=== PATIENT | female | born 1950 | race Caucasian/White ===

== ENCOUNTER → 2016-05-05 | Outpatient (CLI) | payer BC ==
[~2016-05-05] MED LIST: /AMLO25TA; /ESOM40CA; ACET65TA; AMLO2.5T PO; BENA25CA4 PO; BISO5TAB5 PO; CELE20TA PO; CIPR25SS; COLA100C2; EXCETAB81 PO; FLON1SPR; GABA300C3 PO; LIDO5DIS36 TOP; LODI400T PO; NEXI40CA PO; OXYC1TAB23 PO; PAME50CA; PERC5TAB8; PERC7.5T8; RANI1TAB6 PO; SALI1GEL OU; ZEBE5TAB
== END ==
LOC: M ADMPAT 10:36
PROVIDERS: ATTEND Orthopaedic Surgery
DX: Z01.818 Encounter for other preprocedural examination (principal); M17.12 Unilateral primary osteoarthritis, left knee

== ENCOUNTER 2016-05-19 08:33 | Inpatient (IN) | payer BC ==
--- NOTE | 2016-05-15 19:29 | HPE ---
DATE OF ADMISSION: 05/19/2016 CHIEF COMPLAINT: Left knee pain and stiffness. HISTORY: Lorna is a 65-year-old female with progressively worsening left knee pain and stiffness. She has failed to improve with conservative management. She has elected for surgery for her continued symptoms with weightbearing activities and activities of daily living. She has consented for a left total knee arthroplasty by Dr. Oliver. Medical optimization completed by Dr. Knott and was reviewed during appointment today. CURRENT MEDICATIONS: - Celexa 20 mg daily - Zantac 150 mg daily - Carafate 1 gram up to four times a day as needed - Flonase 50 mcg/ACT 2 spray in each nostril daily - bisoprolol 1/4 of a 5 mg tablet daily - amlodipine 2.5 mg daily - gabapentin 300 mg three times a day - Nexium 40 mg daily - Percocet 5/325 1-2 tablets three times daily - Lidoderm patches as needed - calcium with vitamin D - Excedrin extra strength ALLERGIES: MORPHINE, PENICILLIN, AMPICILLIN, LEVAQUIN, CELEBREX, and LATEX. MEDICAL HISTORY: Fibromyalgia. SURGICAL HISTORY: L5 laminectomy, C6 fusion, sections, tubal ligation, tonsillectomy, and appendectomy. SOCIAL HISTORY: Patient quit smoking in 2004. She does not use alcohol. REVIEW OF SYSTEMS: Patient denies fevers, chills, nausea, vomiting, or diarrhea. She denies any chest pain, shortness of breath, or cough. She denies any recent upper respiratory infection or urinary tract infection symptoms. She does have persistent left knee pain with weightbearing activities. PHYSICAL EXAM: Well nourished, well developed female in no apparent distress. She is walking with a slight limping gait favoring the left side. Inspection of the left knee reveal no gross abnormalities. The skin is intact. There is quite a bit of tenderness to palpation medially. No hip irritability elicited with range of motion. Patient's calf is soft and nontender to palpation with no palpable cords noted. Her pedal pulses are palpable. Her cap refill is brisk. Neck is supple without adenopathy or jugular venous distension (JVD). Lungs clear to auscultation bilaterally. Heart regular rate and rhythm. Abdomen, bowel sounds are present. Vital signs: Height: 5'3". Weight: 18.4 lbs. Temperature 98.4. Blood pressure: 122/80. Pulse 60. Respirations: 14. LABORATORY DATA: Chest x-ray: No acute findings in chest. 0.7 cm right upper lobe nodule which is being followed by pulmonology. EKG: Sinus bradycardia with nonspecific intraventricular conduction delay. Nasal swabs were notable for staphylococcus aureus which was treated per protocol. Complete blood count WBC 5.1, RBC 4.20, hemoglobin 12.5, hematocrit 38.3, platelets 212, prothrombin time 10, INR 1.02, ESR 4. Complete metabolic profile fasting glucose elevated at 107, BUN 14, creatinine 0.9, sodium 140, potassium 3.9, chloride 1.03, carbon dioxide 25, calcium 9.1, GAP 12, GFR 63, AST decreased at 13, ALT 18, alkaline phosphatase 90, total bilirubin 0.6, total protein 6.6, albumin 3.7. Urine analysis ws negative with urine culture showing no growth. DIAGNOSES: 1. Symptomatic osteoarthritis of the right knee with x-rays notable for endstage degenerative changes. 2. Positive nasal swabs for staphylococcus aureus. PLAN: 1. Patient has consented for a left total knee arthroplasty by Dr. Oliver. 2. Patient to be treated with Bactrim DS, mupirocin ointment, and Hibiclens per protocol. My preceptor for this patient encounter was Dr. Santhosh Oliver . The preceptor was physically present in the building during the encounter and was fully available. As needed, all aspects of the patient interview, examination, medical decision making process, and medical care plan development were reviewed and approved by the preceptor. The preceptor is aware and concurs with the plan as stated in the body of this note and will attest to such by his/her cosignature.
[~2016-05-19] VITALS: Ht 162.6 cm; Wt 86.2 kg
[2016-05-19] MEDS: FLUTICASONE PROP 0.05% NASAL SPRAY 16 GM (FLONASE) SCH (09:00)
[2016-05-19] MEDS ORDERED: VANCOMYCIN HCL 1,000 MG, VIAL MATE ADAPTER 1 EACH in D5W 250 ML IV ONE ×2 (09:00→21:00)
[2016-05-19] MEDS ORDERED: LR 1,000 ML IV SCH ×4 (09:00→12:45)
[2016-05-19] MEDS ORDERED: MIDAZOLAM INJ 2 MG/2 ML VIAL (J2250) As Ordered ONE ×2 (09:55→10:54)
[2016-05-19] MEDS ORDERED: fentaNYL 100 MCG/2 ML INJECTION (J3010) As Ordered ONE ×3 (09:55→10:54)
[2016-05-19] MEDS ORDERED: TRANEXAMIC ACID 100 MG/ML 10ML VIAL As Ordered ONE (10:17)
[2016-05-19] MEDS ORDERED: BUPIVACAINE HCL 0.25% 30 ML VIAL As Ordered ONE (10:17)
[2016-05-19] MEDS ORDERED: CLINDAMYCIN INJ 900MG/6ML VIAL As Ordered ONE (10:18)
[2016-05-19] MEDS ORDERED: EPINEPHrine INJ 1 MG/ML 1ML VIAL/AMP As Ordered ONE (10:19)
[2016-05-19] MEDS ORDERED: fentaNYL 100 MCG/2 ML INJECTION (J3010) IV ONE (10:30)
[2016-05-19] MEDS ORDERED: MIDAZOLAM INJ 2 MG/2 ML VIAL (J2250) IV ONE (10:30)
[2016-05-19] MEDS ORDERED: PROPOFOL 500 MG/50 ML VIAL As Ordered ONE (10:54)
[2016-05-19] MEDS ORDERED: ePHEDrine SULFATE 25 MG/5 ML(5MG/ML) SYRINGE As Ordered ONE (10:54)
[2016-05-19] MEDS ORDERED: PHENYLephrine HCL 500 MCG/5 ML (100MCG/ML) SYRINGE (J2370) As Ordered ONE ×2 (10:54→11:41)
[2016-05-19] MEDS ORDERED: PROPOFOL 200 MG/20 ML VIAL As Ordered ONE (11:39)
[2016-05-19] MEDS ORDERED: ONDANSETRON 4MG/2ML VIAL (J2405) As Ordered ONE (11:43)
[2016-05-19] MEDS ORDERED: LIDOCAINE 2% INJ 100 MG/5 ML SDV (FOR ANES.) As Ordered ONE (11:43)
[2016-05-19] MEDS ORDERED: fentaNYL 100 MCG/2 ML INJECTION (J3010) IV PRN (12:45)
[2016-05-19] MEDS ORDERED: ONDANSETRON 4MG/2ML VIAL (J2405) IV PRN (12:45)
[2016-05-19] MEDS ORDERED: HYDROmorphone HCL 1 MG/ML SYRINGE (J1170) IV PRN (12:45)
[2016-05-19] MEDS ORDERED: PATIENT IS CURRENTLY ON AN ON-Q PAIN BUSTER PAIN RELIEF SYSTEM XX SCH (13:00)
[2016-05-19] MEDS ORDERED: ACETAMINOPHEN TAB 650MG DOSE (2X325MG) PO PRN (13:00)
[2016-05-19] MEDS ORDERED: FLEET ENEMA PR PRN (13:00)
[2016-05-19] MEDS: PERCOCET 5MG/325MG TAB PO PRN ×4 (13:10→21:31)
[2016-05-19] MEDS: HYDROmorphone HCL 1 MG/ML SYRINGE (J1170) IV PRN ×8 (13:10→23:16)
[2016-05-19] MEDS ORDERED: EPINEPHrine INJ 1 MG/ML 1ML VIAL/AMP ONE (14:48)
[2016-05-19] MEDS ORDERED: ROPIvacaine 0.5% 30 ML INJECTION (J2795) ONE (14:48)
[2016-05-19] MEDS ORDERED: dexameTHASONE 10 MG/1 ML VIAL PRES.FREE (J1100) ONE (14:48)
[2016-05-19 15:00] VITALS: BP 120/61
[2016-05-19 15:03] LABS: INR 1.02
[2016-05-19 15:30] VITALS: BP 121/59
--- NOTE | 2016-05-19 15:46 | IPNPDOC ---
Subjective Date Seen The patient was seen on 05/19/16. Subjective Chief Complaint/HPI The patient is a 65-year-old female admitted with a reason for visit of Arthritis Left Knee. Events since last encounter Patient states she is overall doing well s/p L TKA today; she states it "aches like a toothache" but that her nurse is working on getting the right dose of pain medications. Constitutional: Denies: Chills, Fever Eyes: Denies: Pain ENT: Denies: Head Aches Skin: Denies: Rash Pulmonary: Denies: Cough, Dyspnea Cardiovascular: Denies: Chest Pain, Lt Headedness, Orthopnea, Palpitations Gastrointestinal: Denies: Abdominal Pain, Nausea, Vomiting Genitourinary: Denies: Dysuria Musculoskeletal: Reports: Back Pain (chronic), Joint Pain (Left knee) Neurological: Denies: Confusion, Numbness, Weakness Psych: Reports: Mood Normal, Denies: Anxiety Objective Physical Examination General Exam: Positive: Alert, Cooperative, No Acute Distress Eye Exam: Positive: EOMI, PERRLA ENT Exam: Positive: Atraumatic, Mucous membr. moist/pink Neck Exam: Positive: Supple Chest Exam: Positive: Clear to auscultation, Normal air movement Heart Exam: Positive: Normal S1, Normal S2, Rate Normal, Negative: Murmurs, Rubs Abdomen Exam: Positive: Normal bowel sounds, Soft, Negative: Hepatospenomegaly, Tenderness Extremity Exam: Negative: Cyanosis, Edema Skin Exam: Positive: Nl turgor and temperature, Negative: Rash Neuro Exam: Positive: Cranial Nerves 3-12 NL, Normal Speech Psych Exam: Positive: Mental status NL, Mood NL, Oriented x 3 Assessment /Plan Assessment Please see pre-operative consultation note by Dr. Knott on the patient's chart for full history. Problems (1) Arthritis of left knee Status: Acute Problem Text: S/p L total knee replacement by Dr. Oliver on 05/19/2016. Patient is doing well. Will defer to Ortho in terms of pain management and anticoagulation. (2) Hypertension Status: Chronic Problem Text: BP is low-normal today, so will hold home bisoprolol 1.25 mg (1/ 4 of a 5 mg tablet) daily and amlodipine 2.5 mg daily for now. (3) Lumbosacral stenosis with neurogenic claudication Status: Chronic Problem Text: Continue home gabapentin. Other pain medications per Ortho. Holding home etolodac and excedrin while on warfarin. (4) Anxiety Status: Chronic Problem Text: Continue home citalopram. (5) Obstructive sleep apnea Status: Chronic Problem Text: Continue home CPAP. (6) GERD (gastroesophageal reflux disease) Status: Chronic Problem Text: Continue home PPI; hold home PRN carafate and PRN zantac. Plan/VTE VTE Prophylaxis Ordered?: Yes VS, I&O, 24H, Fishbone Vital Signs/I&O Vital Signs Date Time Temp Pulse Resp B/P Pulse Ox O2 Delivery O2 Flow Rate FiO2 05/19/16 13:40 98.6 71 16 108/54 98 Nasal Cannula 3 Laboratory Data 24H LABS Laboratory Tests 2 05/19/16 14:15: Prothromb Time International Ratio 1.02, Prothrombin Time 13.5 CELI VALDEZ MD May 19, 2016 15:46
[2016-05-19 16:30] VITALS: BP 130/66
[2016-05-19] MEDS ORDERED: WARFARIN SOD 5 MG TAB PO ONE (17:00)
[2016-05-19] MEDS: GABAPENTIN 300 MG CAP PO SCH ×2 (17:02→20:08)
[2016-05-19 17:30] VITALS: BP 108/54
[2016-05-19 18:30] VITALS: BP 120/57
[2016-05-19 19:30] VITALS: BP 142/60
[2016-05-19] MEDS: CitaloPRAM (CeleXA) 20 MG TAB PO SCH (20:08)
[2016-05-19] MEDS: LIDOCAINE 5% (LIDODERM) PATCH TD SCH (21:29)
[2016-05-20] VITALS: BP 120/61
[2016-05-20] MEDS: PERCOCET 5MG/325MG TAB PO PRN ×5 (01:47→20:16)
[2016-05-20 06:00] VITALS: BP 103/52
[2016-05-20 06:42] LABS: MEAN CORPUSCULAR HEMOGLOBIN 30.4 pg (27.0-33.0); MEAN CORPUSCULAR HGB CONC 32.6 g/dl (32.0-36.5); MEAN CORPUSCULAR VOLUME 93.2 fl (80.0-96.0); RED CELL DISTRIBUTION WIDTH 13.1 % (11.5-14.5)
[2016-05-20 06:46] LABS: INR 1.42
[2016-05-20 08:00] VITALS: BP 123/61
[2016-05-20] MEDS ORDERED: oxyCODONE 10 MG CR TAB PO SCH (09:00)
[2016-05-20] MEDS: **NOTE PATIENT COMMENT** MISC XX SCH (09:00)
[2016-05-20] MEDS: GABAPENTIN 300 MG CAP PO SCH ×3 (09:09→20:16)
[2016-05-20] MEDS: SENOKOT S TAB PO SCH ×2 (09:09→20:16)
[2016-05-20] MEDS: FLUTICASONE PROP 0.05% NASAL SPRAY 16 GM (FLONASE) SCH (09:09)
[2016-05-20] MEDS: MOM 30ML SUSPENSION UDC PO SCH (09:09)
[2016-05-20] MEDS: MIRALAX *UNIT DOSE* 17GM PACKET PO SCH (09:09)
[2016-05-20] MEDS: HYDROmorphone HCL 1 MG/ML SYRINGE (J1170) IV PRN ×2 (09:12→13:31)
--- NOTE | 2016-05-20 10:33 | RO ---
DATE OF PROCEDURE: 05/19/2016 PREOPERATIVE DIAGNOSIS: Left knee osteoarthritis. POSTOPERATIVE DIAGNOSIS: Left knee osteoarthritis. PROCEDURE: Left total knee arthroplasty using PFC rotating platform, posterior stabilized size 3 femur, 2.5 tibial tray, 12.5 polyethylene, 32 patellar button. SURGEON: Dr. Santhosh Oliver. DIRECTOR OF RECRUITMENT AND ADMISSIONS: Jermaine Carney. ANESTHESIA: Spinal block. ESTIMATED BLOOD LOSS: Less than 50. COMPLICATIONS: None. INDICATIONS: 65-year woman who has had gradually worsening left knee pain refractory to conservative management. She wished to go ahead with surgical treatment having understood the nature of the procedure, the risks of bleeding, infection, damage to nerves, vessels, persistent pain, wear, loosening, blood clots, medical problems, , among others. Some risk of stiffness. Preop clearance was obtained. PROCEDURE: The patient taken to the operating room and placed in supine position after spinal anesthesia was induced. Left lower extremity was prepped and draped in usual sterile fashion. Time-out was performed. Tourniquet was inflated. I then created a longitudinal incision over the anterior aspect of the knee. Sharp dissection was carried down through subcutaneous tissue. I performed a medial parapatellar arthrotomy per routine, everted the patella, flexed the knee up. I removed some of the fat pad for visualization then used the canal initiating reamer followed by the intramedullary guide set at 5 of valgus and 10 mm cut. This was pinned in place by the environmental assistant. The environmental assistant made the distal femoral cut as I protected soft tissues and supervised the cut. The sizing guide was then used and it was sized to be a 3 femur. The pin holes were placed in the end of the femur with external rotation and the cutting block was secured and remaining four cuts were made. At all times the soft tissues were protected. We then prepared the tibial side and the alignment guide was then placed in the appropriate amount posterior slope and valgus and the tibial cut was made about 4 mm off the low side and I removed this tibial bone. It was a little bit thicker I think due to the relative wear on the medial side but overall excellent cut was noted. We then used the chronic specialist to remove soft tissue from either side of the knee and osteophytes posteriorly. The spacer blocks were then used and a size 12.5 seemed to be the most appropriate in flexion and extension. Tibial tray was prepared and the 2.5 fit nicely. It was pinned in place, drilled, broached and the PCL was examined and it did appear to be that it was relatively deficient. I was a little concerned about going with the cruciate retaining knee just because I think that a majority of the PCL was not functional. So we decided to go ahead with the box cutting guide on the end of the femur. This was pinned in place, size 3. I made the sagittal cuts and the environmental assistant made the distal cut. We filed this down and made sure that there was no high spots. Trial components were then placed and excellent fit and alignment and stability were noted. She had full extension, excellent flexion with no posterior impingement. There was excellent alignment of the components. I then freehand cut the patella which was notably arthritic. It was severe arthritis. I removed about 7 mm of bone and sized to be a 32. The drill holes were placed and the trial button was placed which tracked very nicely. Once I was satisfied with this and I had removed all the soft tissue that would have possibly impinged, I removed the trial components, irrigated copiously. The environmental assistant prepared the bone cement in a modern technique on the back table and then I dried the bony surfaces, cemented on the tibial tray, removed excess bone cement, cemented on the femoral component in the usual fashion, removed excess bone cement and then placed the tibial tray size 12, posterior stabilized rotating platform and reduced the knee. At this point, we cemented on the patellar component held in place with a clamp. We had copiously irrigated and dried the bony surfaces prior to cementing and we copiously irrigated at this point. I then repaired the deep layer with several interrupted #1 Vicryl sutures and removed the patellar clamp once the cement had hardened. We then used a single arm Stratafix suture starting around the midpoint and the environmental assistant working proximally and I worked distally obtaining a watertight closure of the deep layer. These were locked appropriately at either end. I then put the knee through range of motion. Excellent stability and range of motion were noted and there was no catching or clicking noted. The wound was irrigated, closed subcutaneous with #2-0 Vicryl with the environmental assistant's help, skin with giovana. Sterile dressing was applied. I did insert a PainBuster through the superolateral aspect of the knee and injected 10 mL of the Marcaine with fentanyl. The PainBuster catheter was hooked up and attached to the skin in the usual fashion. Tourniquet had been deflated and dressing applied. She was taken to recovery room in stable condition. No known complications. The plan be routine postop. The environmental assistant was instrumental in holding retractors and making the distal femoral cuts and preparing the bone cement and assisting in closure.
--- NOTE | 2016-05-20 10:46 | REP ---
LEFT KNEE: Two views of the left knee are performed. There is a total knee prosthesis in good position. Structures are well aligned. Osseous structures are intact. Metallic skin giovana are seen anteriorly. Signed by Yonatan Lay MD 05/20/2016 08:07 P
[2016-05-20 14:00] VITALS: BP 127/61
[2016-05-20] MEDS ORDERED: WARFARIN SOD 5 MG TAB PO SCH (17:00)
[2016-05-20] MEDS: oxyCODONE 10 MG CR TAB PO SCH (17:43)
[2016-05-20] MEDS: ONDANSETRON 4MG/2ML VIAL (J2405) IV PRN (17:53)
[2016-05-20] MEDS: CitaloPRAM (CeleXA) 20 MG TAB PO SCH (20:16)
[2016-05-20] MEDS: LIDOCAINE 5% (LIDODERM) PATCH TD SCH (20:18)
[2016-05-20 22:00] VITALS: BP 132/62
[2016-05-20] MEDS: HYDROmorphone 2 MG TAB PO PRN (22:29)
[2016-05-21] MEDS: PERCOCET 5MG/325MG TAB PO PRN ×4 (01:41→20:29)
[2016-05-21] MEDS: oxyCODONE 10 MG CR TAB PO SCH (05:54)
[2016-05-21 06:00] VITALS: BP 160/81
[2016-05-21] MEDS: ONDANSETRON 4MG/2ML VIAL (J2405) IV PRN (06:32)
[2016-05-21] MEDS: HYDROmorphone 2 MG TAB PO PRN (06:32)
[2016-05-21 06:45] LABS: INR 2.33
[2016-05-21 06:46] LABS: MEAN CORPUSCULAR HEMOGLOBIN 30.7 pg (27.0-33.0); MEAN CORPUSCULAR HGB CONC 32.6 g/dl (32.0-36.5); MEAN CORPUSCULAR VOLUME 94.1 fl (80.0-96.0); WHITE BLOOD COUNT 7.1 K/mm3 (4.0-10.0)
[2016-05-21] MEDS: MIRALAX *UNIT DOSE* 17GM PACKET PO SCH (08:36)
[2016-05-21] MEDS: PANTOPRAZOLE 40MG TAB (PROTONIX) PO SCH (08:36)
[2016-05-21] MEDS: FLUTICASONE PROP 0.05% NASAL SPRAY 16 GM (FLONASE) SCH (08:36)
[2016-05-21] MEDS: MOM 30ML SUSPENSION UDC PO SCH (08:36)
[2016-05-21] MEDS: SENOKOT S TAB PO SCH ×2 (08:36→20:27)
[2016-05-21] MEDS: GABAPENTIN 300 MG CAP PO SCH ×3 (08:36→20:26)
[2016-05-21] MEDS: **NOTE PATIENT COMMENT** MISC XX SCH (09:00)
[2016-05-21] MEDS ORDERED: MORPHINE 15 MG SA TAB PO SCH (09:00)
--- NOTE | 2016-05-21 12:38 | IPNPDOC ---
Subjective Date Seen The patient was seen on 05/21/16. Subjective Chief Complaint/HPI The patient is a 65-year-old female admitted with a reason for visit of Arthritis Left Knee. Constitutional: Denies: Chills, Fever ENT: Denies: Head Aches Skin: Denies: Rash Pulmonary: Reports: Dyspnea (a little SOB last night), Denies: Cough Cardiovascular: Denies: Chest Pain, Palpitations Gastrointestinal: Denies: Abdominal Pain, Nausea, Vomiting Genitourinary: Denies: Dysuria Musculoskeletal: Reports: Back Pain (chronic) Neurological: Denies: Confusion Psych: Reports: Mood Normal Objective Physical Examination General Exam: Positive: Alert, Cooperative, No Acute Distress ENT Exam: Positive: Atraumatic, Mucous membr. moist/pink Neck Exam: Positive: Supple Chest Exam: Positive: Diminished (in bilateral bases) Heart Exam: Positive: Normal S1, Normal S2, Rate Normal, Negative: Murmurs, Rubs Abdomen Exam: Positive: Normal bowel sounds, Soft, Negative: Hepatospenomegaly, Tenderness Extremity Exam: Negative: Cyanosis, Edema Skin Exam: Positive: Nl turgor and temperature, Negative: Rash Neuro Exam: Positive: Cranial Nerves 3-12 NL, Normal Speech Psych Exam: Positive: Mental status NL, Mood NL, Oriented x 3 Assessment /Plan Problems (1) Arthritis of left knee Status: Acute Problem Text: S/p L total knee replacement by Dr. Oliver on 05/19/2016. Patient is doing well. Will defer to Ortho in terms of pain management and anticoagulation. (2) Hypertension Status: Chronic Problem Text: BP elevated today with SBP of 160; restart home bisoprolol 1.25 mg (1/4 of a 5 mg tablet) daily and amlodipine 2.5 mg daily. (3) Shortness of breath Status: Acute Problem Text: Temp of 100.2 this morning and requiring O2; will check CXR. Continue incentive spirometry. (4) Lumbosacral stenosis with neurogenic claudication Status: Chronic Problem Text: Continue home gabapentin. Other pain medications per Ortho. Holding home etolodac and excedrin while on warfarin. (5) Anxiety Status: Chronic Problem Text: Continue home citalopram. (6) Obstructive sleep apnea Status: Chronic Problem Text: Continue home CPAP. (7) GERD (gastroesophageal reflux disease) Status: Chronic Problem Text: Continue home PPI; hold home PRN carafate and PRN zantac. Plan/VTE VTE Prophylaxis Ordered?: Yes VS, I&O, 24H, Fishbone Vital Signs/I&O Vital Signs Date Time Temp Pulse Resp B/P Pulse Ox O2 Delivery O2 Flow Rate FiO2 05/21/16 10:39 16 05/21/16 09:05 Nasal Cannula 2.0 05/21/16 06:00 100.2 73 160/81 94 I&O- Last 24 Hours up to 6 AM 05/21/16 06:00 Intake Total 2280 ml Output Total 2050 ml Balance 230 ml Laboratory Data 24H LABS Laboratory Tests 2 05/21/16 06:16: Prothromb Time International Ratio 2.33, Prothrombin Time 25.6H CBC/BMP Laboratory Tests 05/21/16 06:16 Red Blood Count 2.78 L, Mean Corpuscular Volume 94.1, Mean Corpuscular Hemoglobin 30.7, Mean Corpuscular Hemoglobin Concent 32.6, Red Cell Distribution Width 13.0 CELI VALDEZ MD May 21, 2016 12:38
[2016-05-21 14:00] VITALS: BP 135/67
--- NOTE | 2016-05-21 15:27 | REP ---
TWO VIEW CHEST: Two views of the chest are performed. There are no prior studies for comparison. There appears to be mild bibasilar fibrotic change. 7 mm nodular opacity is seen in the right upper lung zone. No consolidating infiltrate is seen. The heart is normal in size and the mediastinal silhouette is unremarkable. There are mild degenerative changes of the spine. IMPRESSION: No evidence of acute infiltrate. Mild bibasilar fibroatelectatic change. There appears to be a 7 mm nodular density in the right upper lobe. Recommend CT of the chest to further evaluate. Signed by Yonatan Lay MD 05/22/2016 04:38 P
[2016-05-21] MEDS: CitaloPRAM (CeleXA) 20 MG TAB PO SCH (20:27)
[2016-05-21] MEDS: LIDOCAINE 5% (LIDODERM) PATCH TD SCH (20:29)
[2016-05-21] MEDS ORDERED: BISOPROLOL FUMARATE 1.25MG PER 1/4 TABLET PO SCH (21:00)
[2016-05-21 22:00] VITALS: BP 131/62
[2016-05-22] MEDS: PERCOCET 5MG/325MG TAB PO PRN ×3 (00:55→10:08)
[2016-05-22 06:00] VITALS: BP 128/58
[2016-05-22 06:53] LABS: INR 1.71
[2016-05-22] MEDS ORDERED: OXYC-299 PO (08:09)
[2016-05-22] MEDS ORDERED: COUM2.5T11 PO (08:09)
[2016-05-22] MEDS ORDERED: PERC5TAB6 PO (08:09)
[2016-05-22 09:00] VITALS: BP 122/58
[2016-05-22] MEDS: **NOTE PATIENT COMMENT** MISC XX SCH (09:00)
[2016-05-22] MEDS: MIRALAX *UNIT DOSE* 17GM PACKET PO SCH (09:00)
[2016-05-22] MEDS: MOM 30ML SUSPENSION UDC PO SCH (09:00)
[2016-05-22] MEDS: GABAPENTIN 300 MG CAP PO SCH (09:13)
[2016-05-22 09:14] VITALS: BP 122/58
[2016-05-22] MEDS: PANTOPRAZOLE 40MG TAB (PROTONIX) PO SCH (09:14)
[2016-05-22] MEDS: SENOKOT S TAB PO SCH (09:14)
[2016-05-22] MEDS: FLUTICASONE PROP 0.05% NASAL SPRAY 16 GM (FLONASE) SCH (09:15)
== END 2016-05-22 10:45 | disposition home or self-care (01) | DRG 302 ==
LOC: M OR 08:33 → M MS5PR 14:05
PROVIDERS: ADMIT Orthopaedic Surgery; ATTEND Orthopaedic Surgery
PROC: 0SRD0J9 Replacement of Left Knee Joint with Synthetic Substitute, Cemented, Open Approach (ICD-10-PCS; principal; 2016-05-19 10:20)
DX: M17.12 Unilateral primary osteoarthritis, left knee (principal); I10 Essential (primary) hypertension; M79.7 Fibromyalgia; F41.9 Anxiety disorder, unspecified; G47.33 Obstructive sleep apnea (adult) (pediatric); K21.9 Gastro-esophageal reflux disease without esophagitis; M48.06 Spinal stenosis, lumbar region; Z88.0 Allergy status to penicillin; Z88.8 Allergy status to other drugs, medicaments and biological substances; Z88.6 Allergy status to analgesic agent; Z88.5 Allergy status to narcotic agent; Z87.891 Personal history of nicotine dependence

== ENCOUNTER → 2016-11-20 | Outpatient (REF) | payer BC ==
[~2016-11-20] MED LIST changes: +COUM2.5T17 PO; +GABA-282 PO; -GABA300C3 PO; -LIDO5DIS36 TOP; +LIDO5DIS41 TOP; +OXYC-141 PO; +PERC5TAB12 PO
== END ==
LOC: M SFHCCLAY 13:47
PROVIDERS: ATTEND Family Medicine
DX: I10 Essential (primary) hypertension (principal); M48.07 Spinal stenosis, lumbosacral region; Z96.652 Presence of left artificial knee joint; Z53.9 Procedure and treatment not carried out, unspecified reason

== ENCOUNTER → 2017-05-07 | Outpatient (REF) | payer BC, MEDICARE | LOC: M SFHCCLAY 14:32 | DX: R30.0 Dysuria (principal) ==

== ENCOUNTER → 2017-05-21 | Outpatient (REF) | payer BC, MEDICARE | LOC: M SMT 16:57 | DX: R31.29 Other microscopic hematuria (principal) | CPT/HCPCS: 87086 ==

== ENCOUNTER → 2017-09-22 | Outpatient (REF) | payer BC, MEDICARE ==
[2017-10-04 10:13] LABS: AMPHETAMINE SCREEN, URINE Negative ng/mL (Cutoff=1000); BARBITURATES SCREEN, URINE Negative ng/mL (Cutoff=200); BENZODIAZEPINES, URINE SCREEN Negative ng/mL (Cutoff=200); CANNABINOID SCREEN, URINE Negative ng/mL (Cutoff=20); COCAINE SCREEN, URINE Negative ng/mL (Cutoff=300); CREATININE, URINE 23.4 mg/dL (20.0-300.0); METHADONE, URINE SCREEN Negative ng/mL (Cutoff=300); OPIATE SCREEN, URINE See Final Results ng/mL (Cutoff=300); OPIATES, URINE Negative ng/mL (Cutoff=300); OXYCODONE URINE Positive (.); OXYCODONE, SCREEN, URINE See Final Results ng/mL (Cutoff=100); OXYCODONE, URINE CONFIRM 381 ng/mL (Cutoff=100); OXYCODONE/OXYMORPH, URINE Positive (Cutoff=100); OXYMORPHONE, URINE Positive (.); OXYMORPHONE, URINE CONFIRM 151 ng/mL (Cutoff=100); PCP SCREEN, URINE Negative ng/mL (Cutoff=25); pH, URINE 7.6 (4.5-8.9)
== END ==
LOC: M SFHCCLAY 14:22
DX: M54.5 Low back pain (principal)
CPT/HCPCS: G0463

== ENCOUNTER → 2020-09-13 | Outpatient (REF) | payer MEDICARE ==
[~2020-09-13] MED LIST changes: -/AMLO25TA; -/ESOM40CA; -AMLO2.5T PO; +AMLO2.5T3 PO; +BISO5TAB14 PO; -BISO5TAB5 PO; +NEXI1CAP3; +NORV2TAB; +RANI-397 PO; -RANI1TAB6 PO
[2020-09-13 16:19] LABS: HEMOGLOBIN 12.4 g/dl (12.0-15.5); MEAN CORPUSCULAR HEMOGLOBIN 29.2 pg (27.0-33.0); MEAN CORPUSCULAR HGB CONC 31.8 g/dl (32.0-36.5); PLATELET COUNT, AUTOMATED 196 10^3/uL (150-450); RED BLOOD COUNT 4.24 10^6/uL (4.00-5.40); WHITE BLOOD COUNT 5.7 10^3/uL (4.0-10.0)
[2020-09-13 16:52] LABS: ALBUMIN 3.9 GM/DL (3.2-5.2); ALT/SGPT 17 U/L (12-78); BILIRUBIN,TOTAL 0.4 MG/DL (0.2-1.0); BLOOD UREA NITROGEN 12 MG/DL (7-18); CALCIUM LEVEL 8.8 MG/DL (8.8-10.2); CARBON DIOXIDE LEVEL 29 MEQ/L (21-32); CHLORIDE LEVEL 106 MEQ/L (98-107); CHOLESTEROL LEVEL 200 MG/DL (<200); CHOLESTEROL RISK RATIO 3.448 (<5); FREE T4 0.84 NG/DL (0.76-1.46); GLOMERULAR FILTRATION RATE > 60.0 (>45); GLUCOSE, FASTING 86 MG/DL (70-100); HDL CHOLESTEROL 58 MG/DL (>40); LDL CHOLESTEROL 125 MG/DL (<100); NON-HDL-C 142 MG/DL; POTASSIUM SERUM 3.9 MEQ/L (3.5-5.1); SODIUM LEVEL 139 MEQ/L (136-145); TOTAL PROTEIN 6.6 GM/DL (6.4-8.2); TRIGLYCERIDES LEVEL 83 MG/DL (<150)
== END ==
LOC: M SFHCCLAY 10:34
PROVIDERS: ATTEND Family Medicine
DX: G47.33 Obstructive sleep apnea (adult) (pediatric) (principal); I10 Essential (primary) hypertension; M47.12 Other spondylosis with myelopathy, cervical region; E78.00 Pure hypercholesterolemia, unspecified
CPT/HCPCS: 80053; 80061; 84439; 84443; 85027; G0463

== ENCOUNTER → 2020-10-09 | Outpatient (REF) | payer MEDICARE | LOC: M LAB REF 08:53 | PROVIDERS: ATTEND Surgery | DX: L98.0 Pyogenic granuloma (principal) ==

== ENCOUNTER → 2020-10-29 | Outpatient (REF) | payer MEDICARE ==
[2020-10-29 17:16] LABS: BLOOD UREA NITROGEN 12 MG/DL (7-18); CREATININE FOR GFR 0.69 MG/DL (0.55-1.30); GLOMERULAR FILTRATION RATE > 60.0 (>45)
== END ==
LOC: M LABDRAWC 15:39
PROVIDERS: ATTEND Orthopaedic Surgery Orthopaedic Surgery of the Spine
DX: Z86.79 Personal history of other diseases of the circulatory system (principal)

== ENCOUNTER → 2021-03-18 | Outpatient (CLI) | payer MEDICARE ==
[~2021-03-18] MED LIST changes: +ATEN25TA PO; +CITRTAB19 PO; +CLIN1LOT TOP; +DULO1CAP6 PO; +EXCETAB33 PO; +FAMO20TA PO; +SENN-23 PO
== END ==
LOC: M LABSMTC 11:26
PROVIDERS: ATTEND Anesthesiology
DX: Z01.812 Encounter for preprocedural laboratory examination (principal); Z20.822 Contact with and (suspected) exposure to COVID-19

== ENCOUNTER 2021-03-22 09:24 | Day surgery (SDC) | payer MEDICARE ==
[~2021-03-22] VITALS: Ht 162.6 cm; Wt 91.6 kg
[~2021-03-22 09:24] MED LIST changes: +LIDOCAINE 2% 100MG/5ML SDV (FOR ANES.) As Ordered ONE; +NS 1,000 ML IV ONE; +propofoL 200 MG/20 ML VIAL As Ordered ONE
[2021-03-22 12:40] VITALS: BP 142/88
== END 2021-03-22 12:57 | disposition home or self-care (01) ==
LOC: M OPP 09:24
PROVIDERS: ATTEND Internal Medicine Gastroenterology
DX: Z12.11 Encounter for screening for malignant neoplasm of colon (principal); Z86.010 Personal history of colon polyps; D12.2 Benign neoplasm of ascending colon; K57.30 Diverticulosis of large intestine without perforation or abscess without bleeding; K64.8 Other hemorrhoids; Z79.891 Long term (current) use of opiate analgesic; Z79.899 Other long term (current) drug therapy; Z88.0 Allergy status to penicillin; Z88.5 Allergy status to narcotic agent; Z88.8 Allergy status to other drugs, medicaments and biological substances

== ENCOUNTER → 2022-05-13 | Outpatient (REF) | payer MEDICARE ==
[~2022-05-13] MED LIST changes: +EXCETAB32 PO; -EXCETAB33 PO; -LIDOCAINE 2% 100MG/5ML SDV (FOR ANES.) As Ordered ONE; -NS 1,000 ML IV ONE; -propofoL 200 MG/20 ML VIAL As Ordered ONE
[2022-05-13 17:05] LABS: APPEARANCE, URINE HAZY (CLEAR); BACTERIA, URINE AUTO NEGATIVE (NEGATIVE); BILIRUBIN, URINE AUTO NEGATIVE (NEGATIVE); BLOOD, URINE BLOOD NEGATIVE (NEGATIVE); COLOR, URINE YELLOW (YELLOW); GLUCOSE, URINE (UA) AUTO NEGATIVE (NEGATIVE); KETONE, URINE AUTO TRACE mg/dL (NEGATIVE); LEUKOCYTE ESTERASE, URINE AUTO NEGATIVE (NEGATIVE); MUCUS, URINE SMALL (NEGATIVE); NITRITE, URINE AUTO NEGATIVE (NEGATIVE); PROTEIN, URINE AUTO NEGATIVE (NEGATIVE); RBC, URINE AUTO 14 /HPF (0-3); SPECIFIC GRAVITY URINE AUTO 1.021 (1.002-1.035); SQUAMOUS EPITHELIAL CELL UR AU 1 /HPF (0-6); UROBILINOGEN, URINE AUTO 0.2 mg/dL (0.0-2.0); WBC, URINE AUTO 1 /HPF (0-3)
[2022-05-13 17:14] LABS: ALBUMIN 3.9 G/DL (3.2-5.2); ALKALINE PHOSPHATASE 119 U/L (46-116); ALT/SGPT 24 U/L (7.0-40); AST/SGOT 22 U/L (<34); BILIRUBIN,TOTAL 0.6 MG/DL (0.3-1.2); BLOOD UREA NITROGEN 15 MG/DL (9-23); CALCIUM LEVEL 9.6 MG/DL (8.3-10.6); CARBON DIOXIDE LEVEL 30 MMOL/L (20-31); CHLORIDE LEVEL 103 MMOL/L (98-107); CHOLESTEROL LEVEL 197 MG/DL (<200); CHOLESTEROL RISK RATIO 3.25 (<5); CREATININE FOR GFR 0.65 MG/DL (0.55-1.30); GLOMERULAR FILTRATION RATE > 60.0 (>39); GLUCOSE, FASTING 105 MG/DL (74-106); HDL CHOLESTEROL 60.6 MG/DL (>40); LDL CHOLESTEROL 109.6 MG/DL (<100); NON-HDL-C 136 MG/DL; POTASSIUM SERUM 4.1 MMOL/L (3.5-5.1); SODIUM LEVEL 139 MMOL/L (136-145); TRIGLYCERIDES LEVEL 134 MG/DL (<150)
[2022-05-13 17:29] LABS: HEMATOCRIT 41.3 % (36.0-47.0); HEMOGLOBIN 13.2 g/dl (12.0-15.5); MEAN CORPUSCULAR HEMOGLOBIN 29.6 pg (27.0-33.0); MEAN CORPUSCULAR VOLUME 92.6 fl (80.0-96.0); PLATELET COUNT, AUTOMATED 218 10^3/uL (150-450); RED BLOOD COUNT 4.46 10^6/uL (4.00-5.40); WHITE BLOOD COUNT 7.2 10^3/uL (4.0-10.0)
== END ==
LOC: M SFHCCLAY 14:13
PROVIDERS: ATTEND Family Medicine
DX: G47.33 Obstructive sleep apnea (adult) (pediatric) (principal); I10 Essential (primary) hypertension; M48.07 Spinal stenosis, lumbosacral region; R31.29 Other microscopic hematuria

== ENCOUNTER → 2022-06-06 | Outpatient (REF) | payer MEDICARE ==
[2022-06-06 19:17] LABS: APPEARANCE, URINE CLEAR (CLEAR); BACTERIA, URINE AUTO NEGATIVE (NEGATIVE); BILIRUBIN, URINE AUTO NEGATIVE (NEGATIVE); BLOOD, URINE BLOOD NEGATIVE (NEGATIVE); COLOR, URINE YELLOW (YELLOW); GLUCOSE, URINE (UA) AUTO NEGATIVE (NEGATIVE); KETONE, URINE AUTO NEGATIVE (NEGATIVE); LEUKOCYTE ESTERASE, URINE AUTO NEGATIVE (NEGATIVE); MUCUS, URINE SMALL (NEGATIVE); NITRITE, URINE AUTO NEGATIVE (NEGATIVE); PROTEIN, URINE AUTO NEGATIVE (NEGATIVE); RBC, URINE AUTO 1 /HPF (0-3); SQUAMOUS EPITHELIAL CELL UR AU 0 /HPF (0-6); UROBILINOGEN, URINE AUTO 0.2 mg/dL (0.0-2.0); WBC, URINE AUTO 0 /HPF (0-3)
== END ==
LOC: M SFHCCLAY 11:46
PROVIDERS: ATTEND Family Medicine
DX: R31.29 Other microscopic hematuria (principal)

== ENCOUNTER 2023-03-04 10:25 | Day surgery (SDC) | payer MEDICARE ==
[~2023-03-04] VITALS: Ht 162.6 cm; Wt 96.3 kg
[~2023-03-04 10:25] MED LIST changes: +AMLO1TAB24 PO; +CITRTAB18 PO; +[UNRECOGNIZED DRUG - SUPPLY] TOP; +ceFAZolin SOD 2 GM in IV 1 EA IV ONE
[2023-03-04] MEDS ORDERED: EPINEPHrine INJ 1 MG/ML 1ML AMP PN ONE (11:30)
[2023-03-04] MEDS ORDERED: ROPIvacaine 0.5% 30ML VIAL PN ONE (11:30)
[2023-03-04] MEDS ORDERED: dexAMETHasone 10MG/1ML VIAL PRES.FREE PN ONE (11:30)
[2023-03-04] MEDS ORDERED: LIDOCAINE 1% SDV 5ML VIAL PN ONE (11:30)
[2023-03-04] MEDS ORDERED: LR 1,000 ML IV SCH (11:50)
[2023-03-04] MEDS ORDERED: ONDANSETRON 4MG 2ML VIAL As Ordered ONE (12:07)
[2023-03-04] MEDS ORDERED: KETOROLAC 60MG 2ML VIAL As Ordered ONE (12:07)
[2023-03-04] MEDS ORDERED: LIDOCAINE 2% 100MG/5ML SDV (FOR ANES.) As Ordered ONE (12:07)
[2023-03-04] MEDS ORDERED: ACETAMINOPHEN 1000MG 100ML IV BAG As Ordered ONE ×2 (12:07→12:09)
[2023-03-04] MEDS ORDERED: propofoL 200 MG/20 ML VIAL As Ordered ONE (12:07)
[2023-03-04] MEDS: fentaNYL 100 MCG/2 ML INJECTION IV PRN ×6 (12:12→14:54)
[2023-03-04] MEDS: MIDAZOLAM INJ 2MG/2ML VIAL IV PRN ×3 (12:12→12:24)
[2023-03-04] MEDS ORDERED: BACITRACIN OINTMENT 30GM TUBE As Ordered ONE (12:39)
[2023-03-04] MEDS ORDERED: MIDAZOLAM INJ 2MG/2ML VIAL IV ONE (13:00)
[2023-03-04] MEDS ORDERED: fentaNYL 100 MCG/2 ML INJECTION IV ONE (13:00)
[2023-03-04] MEDS ORDERED: ONDANSETRON 4MG 2ML VIAL IV PRN (14:30)
[2023-03-04] MEDS ORDERED: HYDROMORPHONE HCL 0.5 MG/ 0.5 ML SYRINGE IV STA (14:48)
[2023-03-04] MEDS: oxyCODONE 5MG TAB PO PRN ×2 (15:00→15:39)
[2023-03-04] MEDS: HYDROMORPHONE HCL 0.5 MG/ 0.5 ML SYRINGE IV PRN ×3 (15:15→15:33)
[2023-03-04 15:45] VITALS: BP 129/78
[2023-03-04 16:28] VITALS: TEMP 98.3; O2SAT 90
== END 2023-03-04 16:31 | disposition home or self-care (01) ==
LOC: M SDC 10:25
PROVIDERS: ATTEND Orthopaedic Surgery Hand Surgery
DX: S52.572A Other intraarticular fracture of lower end of left radius, initial encounter for closed fracture (principal); I10 Essential (primary) hypertension; K58.9 Irritable bowel syndrome, unspecified; G47.30 Sleep apnea, unspecified; Z86.14 Personal history of Methicillin resistant Staphylococcus aureus infection; Z79.899 Other long term (current) drug therapy; G43.909 Migraine, unspecified, not intractable, without status migrainosus; Z88.8 Allergy status to other drugs, medicaments and biological substances; Z88.0 Allergy status to penicillin; Z88.5 Allergy status to narcotic agent; Z87.891 Personal history of nicotine dependence
CPT/HCPCS: 25609; 76000; 93005; C1713; J0131; J1100; J1170; J1885; J2250; J2405; J3010

== ENCOUNTER → 2023-04-09 | Outpatient (CLI) | payer MEDICARE ==
[~2023-04-09] MED LIST changes: -ceFAZolin SOD 2 GM in IV 1 EA IV ONE
== END ==
LOC: M SOG 10:11
PROVIDERS: ATTEND Physician Assistant
DX: S52.502D Unspecified fracture of the lower end of left radius, subsequent encounter for closed fracture with routine healing (principal); M19.032 Primary osteoarthritis, left wrist; M11.232 Other chondrocalcinosis, left wrist

== ENCOUNTER → 2023-05-13 | Outpatient (CLI) | payer MEDICARE | LOC: M SOG 07:59 | PROVIDERS: ATTEND Physician Assistant | DX: S52.502A Unspecified fracture of the lower end of left radius, initial encounter for closed fracture (principal); Y92.9 Unspecified place or not applicable; Y93.9 Activity, unspecified ==

== ENCOUNTER → 2023-09-10 | Outpatient (REF) | payer MEDICARE ==
[2023-09-10 17:34] LABS: HEMATOCRIT 41.3 % (36.0-47.0); HEMOGLOBIN 13.4 g/dl (12.0-15.5); MEAN CORPUSCULAR HEMOGLOBIN 29.6 pg (27.0-33.0); MEAN CORPUSCULAR HGB CONC 32.4 g/dl (32.0-36.5); MEAN CORPUSCULAR VOLUME 91.2 fl (80.0-96.0); PLATELET COUNT, AUTOMATED 215 10^3/uL (150-450); RED BLOOD COUNT 4.53 10^6/uL (4.00-5.40); WHITE BLOOD COUNT 6.7 10^3/uL (4.0-10.0)
[2023-09-10 17:37] LABS: ALBUMIN 3.8 G/DL (3.2-5.2); ALKALINE PHOSPHATASE 119 U/L (46-116); ALT/SGPT 21 U/L (7.0-40); AST/SGOT 13 U/L (<34); BILIRUBIN,TOTAL 0.6 MG/DL (0.3-1.2); BLOOD UREA NITROGEN 18 MG/DL (9-23); CALCIUM LEVEL 9.9 MG/DL (8.3-10.6); CARBON DIOXIDE LEVEL 29 MMOL/L (20-31); CHLORIDE LEVEL 106 MMOL/L (98-107); CHOLESTEROL LEVEL 208 MG/DL (<200); CHOLESTEROL RISK RATIO 3.67 (<5); GLOMERULAR FILTRATION RATE > 60.0 (>39); GLUCOSE, FASTING 108 MG/DL (74-106); HDL CHOLESTEROL 56.6 MG/DL (>40); LDL CHOLESTEROL 127.4 MG/DL (<100); NON-HDL-C 151.4 MG/DL; POTASSIUM SERUM 4.5 MMOL/L (3.5-5.1); SODIUM LEVEL 140 MMOL/L (136-145); TOTAL PROTEIN 6.9 G/DL (5.7-8.2); TRIGLYCERIDES LEVEL 120 MG/DL (<150)
[2023-09-10 17:38] LABS: FREE T4 0.89 NG/DL (0.89-1.76); THYROID STIMULATING HORMONE 2.224 uIU/ML (0.55-4.78)
== END ==
LOC: M SFHCCLAY 13:06
PROVIDERS: ATTEND Family Medicine
DX: I10 Essential (primary) hypertension (principal); G47.33 Obstructive sleep apnea (adult) (pediatric); M47.12 Other spondylosis with myelopathy, cervical region; E78.00 Pure hypercholesterolemia, unspecified; M48.07 Spinal stenosis, lumbosacral region

== ENCOUNTER → 2024-01-22 | Outpatient (CLI) | payer MEDICARE ==
[~2024-01-22] MED LIST changes: +GABA-1172 PO; -GABA-282 PO
== END ==
LOC: M CLY 14:35
PROVIDERS: ATTEND Family Medicine
DX: M23.91 Unspecified internal derangement of right knee (principal); Z53.9 Procedure and treatment not carried out, unspecified reason

== ENCOUNTER → 2024-01-22 | Outpatient (REF) | payer MEDICARE | LOC: M SFHCCLAY 16:41 | PROVIDERS: ATTEND Family Medicine | DX: G89.4 Chronic pain syndrome (principal); M25.561 Pain in right knee ==

== ENCOUNTER → 2024-01-22 | Outpatient (CLI) | payer MEDICARE | LOC: M CLY 15:01 | PROVIDERS: ATTEND Family Medicine | DX: M23.91 Unspecified internal derangement of right knee (principal); M17.11 Unilateral primary osteoarthritis, right knee ==

== ENCOUNTER → 2024-03-03 | Outpatient (CLI) | payer MEDICARE | LOC: M PLARAD 13:50 | PROVIDERS: ATTEND Family Medicine | DX: M23.91 Unspecified internal derangement of right knee (principal); M17.11 Unilateral primary osteoarthritis, right knee ==

== ENCOUNTER → 2024-05-04 | Outpatient (REF) | payer MEDICARE ==
[2024-05-04 17:00] LABS: ALBUMIN 3.8 G/DL (3.2-5.2); ALKALINE PHOSPHATASE 117 U/L (35-104); ALT/SGPT 19 U/L (7.0-40); AST/SGOT 11 U/L (<34); BILIRUBIN,TOTAL 0.5 MG/DL (0.3-1.2); BLOOD UREA NITROGEN 15 MG/DL (9-23); CALCIUM LEVEL 9.4 MG/DL (8.3-10.6); CARBON DIOXIDE LEVEL 29 MMOL/L (20-31); CHLORIDE LEVEL 102 MMOL/L (98-107); CHOLESTEROL LEVEL 215 MG/DL (<200); CHOLESTEROL RISK RATIO 2.72 (<5); CREATININE FOR GFR 0.85 MG/DL (0.55-1.30); GLOMERULAR FILTRATION RATE > 60.0 (>39); GLUCOSE, FASTING 87 MG/DL (74-106); HDL CHOLESTEROL 78.9 MG/DL (>40); LDL CHOLESTEROL 117.9 MG/DL (<100); NON-HDL-C 136.1 MG/DL; POTASSIUM SERUM 4.3 MMOL/L (3.5-5.1); SODIUM LEVEL 140 MMOL/L (136-145); TOTAL PROTEIN 7.2 G/DL (5.7-8.2); TRIGLYCERIDES LEVEL 91 MG/DL (<150)
[2024-05-04 17:05] LABS: FREE T4 1.12 NG/DL (0.89-1.76); THYROID STIMULATING HORMONE 2.168 uIU/ML (0.55-4.78)
[2024-05-04 17:23] LABS: HEMOGLOBIN A1c 5.8 % (4.0-6.0)
== END ==
LOC: M SFHCCLAY 11:31
PROVIDERS: ATTEND Nurse Practitioner Family
DX: I10 Essential (primary) hypertension (principal); G47.33 Obstructive sleep apnea (adult) (pediatric); E78.00 Pure hypercholesterolemia, unspecified; F41.9 Anxiety disorder, unspecified; F32.1 Major depressive disorder, single episode, moderate; K21.9 Gastro-esophageal reflux disease without esophagitis; G89.4 Chronic pain syndrome; M81.0 Age-related osteoporosis without current pathological fracture; Z79.899 Other long term (current) drug therapy

== ENCOUNTER → 2024-05-04 | Outpatient (CLI) | payer MEDICARE | LOC: M CLY 11:49 | PROVIDERS: ATTEND Nurse Practitioner Family | DX: M25.551 Pain in right hip (principal); Z53.9 Procedure and treatment not carried out, unspecified reason ==

== ENCOUNTER → 2024-05-09 | Outpatient (CLI) | payer MEDICARE | LOC: M CLY 14:27 | PROVIDERS: ATTEND Nurse Practitioner Family | DX: M25.551 Pain in right hip (principal) ==

== ENCOUNTER → 2024-11-10 | Outpatient (REF) | payer MEDICARE ==
[~2024-11-10] MED LIST changes: +LIDO1ADH93 TOP; -LIDO5DIS41 TOP
[2024-11-10 17:31] LABS: ALT/SGPT 19.0 U/L (7.0-40); AST/SGOT 16.0 U/L (<34); CALCIUM LEVEL 9.7 MG/DL (8.3-10.6); CARBON DIOXIDE LEVEL 30.0 MMOL/L (20-31); CHLORIDE LEVEL 104.0 MMOL/L (98-107); CHOLESTEROL LEVEL 221.0 MG/DL (<200); CHOLESTEROL RISK RATIO 3.44 (<5); CREATININE FOR GFR 0.81 MG/DL (0.55-1.30); GLOMERULAR FILTRATION RATE 77.1 (>39); LDL CHOLESTEROL 123.0 MG/DL (<100); NON-HDL-C 156.8 MG/DL; POTASSIUM SERUM 4.7 MMOL/L (3.5-5.1); SODIUM LEVEL 141.0 MMOL/L (136-145); TRIGLYCERIDES LEVEL 169.0 MG/DL (<150)
[2024-11-10 19:05] LABS: ESTIMATED AVERAGE GLUCOSE 131.0 MG/DL (60-110)
== END ==
LOC: M SFHCCLAY 09:59
PROVIDERS: ATTEND Nurse Practitioner Family
DX: I10 Essential (primary) hypertension (principal); G47.33 Obstructive sleep apnea (adult) (pediatric); E78.00 Pure hypercholesterolemia, unspecified; Z79.899 Other long term (current) drug therapy